=== PATIENT | female | born 1930 | race Caucasian/White ===

== ENCOUNTER 2019-10-03 22:11 | Inpatient (IN) ==
[2019-10-03 22:39] LABS: Hematocrit 37.5 % (37.0-47.0); Hemoglobin 11.6 gm/dL (12.5-16.0); Mean Cell Volume 92.8 fl (78-100); Mean Corpuscular Hemoglobin 28.7 pg (27-31); Mean Corpuscular Hgb Conc 30.9 g/dl (32-36); Mean Platelet Volume 8.8 fl (8-12.5); Neutrophil # 12.7 K/mm3 (1.3-6.0); Platelet Count 341 K/mm3 (150-450); Red Blood Count 4.04 M/mm3 (4.2-5.4); White Blood Count 14.6 K/mm3 (4.0-10.5)
[2019-10-03 22:51] LABS: Prothrombin Time (Patient) 10.2 Seconds (9.1-10.7)
[2019-10-03 22:52] LABS: INR 1.03 INR (0.92-1.08); Partial Thrombolplastin Time 26.4 Seconds (24-32)
--- NOTE | 2019-10-03 22:52 | ERNOTE ---
Neuro HPI ER Record Presenting Symptoms: weakness, facial droop, confusion Time Seen by Provider: 10/03/19 22:22 Source: EMS, past records Exam Limitations: clinical condition Allergies/Adverse Reactions: Allergies Allergy/AdvReac Type Severity Reaction Status Date / Time Penicillins Allergy Intermediate Hives Verified 10/03/19 22:22 Home Medications: HOME MEDICATIONS Calcium Carbonate/Vitamin D3 [Calcium 600 + Vit D 200 Tablet] 1 ea PO DAILY 02/20/13 [Last Taken 02/10/18] aspirin 325 mg tablet 325 mg PO DAILY 12/18/17 [Last Taken 02/10/18] bisacodyl 5 mg tablet 5 mg PO DAILY 12/18/17 [Last Taken 02/10/18] cyanocobalamin (vitamin B-12) 1,000 mcg tablet 1,000 mcg PO DAILY #90 tab 10/15/18 [Last Taken Unknown] torsemide 20 mg tablet See Rx Instructions .ROUTE .COMPLEX #90 tablet 10/15/18 [Last Taken Unknown] acetaminophen 325 mg tablet 650 mg PO QID PRN tab 03/19/19 [Last Taken Unknown] cyclobenzaprine 5 mg tablet 5 mg PO BID PRN #10 tab 03/19/19 [Last Taken Unknown] gabapentin 300 mg capsule 300 mg PO BID #60 cap 03/19/19 [Last Taken Unknown] enalapril maleate 20 mg tablet 20 mg PO BID #180 tab 06/03/19 [Last Taken Unknown] potassium chloride 10 mEq capsule,extended release 20 meq PO DAILY #180 cap 07/15/19 [Last Taken Unknown] metoprolol succinate 100 mg tablet,extended release 24 hr See Rx Instructions .ROUTE .COMPLEX #180 unknown measurement unit code: tablet 09/22/19 [Last Taken Unknown] - History of Present Illness Narrative: Patient is an 89-year-old white female with past medical history significant for lung cancer, left carotid artery stenosis, hypertension and COPD was last seen at 1600 today and appearing well - her baseline self, which is independent and ambulatory. Neighbors tried to contact her after that were unable to get in touch with her they found patient on her floor unable to move her right side and having some troubles with speech. She was brought in via EMS with noted elevated blood pressures. Patient is unable to give much history due to clinical condition. EMS states that her blood sugars were over 200, systolic blood pressure over 200 and diastolic blood pressure in the 100s. They noted right facial droop and right sided paralysis. Given patient was last seen at 1600 hrs. she would be outside the timeframe for TPA. Patient does express pain when palpated along the left side but no gross deformi ty seen. Onset: sudden onset, cannot confirm onset, continues in ER, >3 hours - Character of Deficits New weakness: Present: RUE, RLE, facial (rt) Altered sensation: Present: RUE, RLE, facial (rt) Additional Deficits: Present: decrease ability to stand, decrease ability to walk, cannot walk, cannot stand, bed-ridden. Absent: vision problems, impaired speech Baseline Cognition: Present: alert but confused Baseline Gait: Present: walks w/o assistance Associated Symptoms: Reports: agitated. Denies: fever/chills, chest pain, neck/back pain, headache, altered mental status, disoriented, confused Review of Systems - Review of Systems Constitutional: Absent: fever, chills EYE: Present: blurred vision, double vision ENT: Present: no symptoms reported Respiratory: Absent: shortness of breath, cough Cardiology: Absent: chest pain, palpitations Gastrointestinal/Abdominal: Absent: nausea, vomiting, abdominal pain Genitourinary: Absent: dysuria Musculoskeletal: Present: See HPI Skin: Absent: rash, dryness Neurological: Present: See HPI Endocrine: Absent: intolerance to heat, intolerance to cold, increased thirst, increased urine Hematologic/Lymphatic: Absent: easy bruising, easy bleeding Psych: Absent: anxiety, depressed Medical History (Last Reviewed 10/03/19 @ 22:23 by Jose Soto MD) Anemia of chronic disease Onset Date: ~07/14/09 COPD (chronic obstructive pulmonary disease) Onset Date: Unknown Carotid stenosis Onset Date: ~2013 Chronic renal insufficiency Onset Date: Unknown Goiter Onset Date: Unknown Hypertension Onset Date: Unknown Overactive bladder Onset Date: Unknown Seasonal allergies Onset Date: Unknown Abnormal carotid duplex scan Onset Date: ~11/11/13 Hemodynamically significant greater than 60% stenosis within the left carotid system Lung cancer Onset Date: ~01/2008 Left upper lobe mass; carcinoma/adenocarcinoma with bronchioalveloar features Surgical History: Surgical History (Last Reviewed 10/03/19 @ 22:23 by Jose Soto MD) History of phacoemulsification of cataract of left eye with intraocular lens implantation H/O colonoscopy Onset Date: Unknown Family History: Family History (Last Reviewed 10/03/19 @ 22:23 by Jose Soto MD) Father , age 70 History of stroke Mother , age 52; unknown history Social History: (Last Reviewed 10/03/19 @ 22:23 by Jose Soto MD) Social History: adopted: No care home: No Marital status: / lives independently: No current occupational status: retired Service: No Tobacco: Smoking Status: Former smoker Alcohol: alcohol intake: current Substance Use: substance use type: does not use Dietary Habits: caffeine: Yes Type: coffee Physical Exam - Physical Exam General Appearance: Present: wd/wn, alert, mild distress Head Exam: Present: normal inspection, no evidence of injury Eye Exam: Normal inspection: bilateral, PERRL: bilateral, EOMI: bilateral Ears, Nose, Throat: Present: normal except -, dry mucous membranes, other - Notable right facial droop Neck: Present: normal inspection, nontender, supple, carotid bruit - left Respiratory: Present: no respiratory distress, normal breath sounds, no accessory muscle use, lungs clear, chest tenderness - Tender to palpation over the left lateral ribs. Cardiovascular/Chest: Present: regular rate, rhythm, systolic murmur - 4/6 heard best at the left upper sternal border Peripheral Pulses: N=norm/S=strong/W=weak/B=bound/A=absent: Dorsalis-pedis (R): Normal, Dorsalis-pedis (L): Normal Gastrointestinal/Abdominal: Present: normal bowel sounds, nontender, nondistended, soft, no organomegaly Back Exam: Present: no vertebral tenderness, other - deformity of the R scapula - winged vs displaced. Extremity Exam: Present: normal except -, extremity edema - 1+ bilaterally, other - Cool extremities especially on the right side. Right toes and fingers are more purple than the left side. Patient has no purposeful movement of the right side. She has bruising in the triceps area on R and should appears higher riding. Neurological Exam: Present: alert, merchandiser retail representative II-XII nml as tested - Cranial nerves II through VII tested, IX. pt. uncooperative or unable to do other tests., facial droop, motor weakness - Right upper and lower extremity, other - Patient has a very weak gag reflex. She is uncooperative and doing a tongue protrusion and side to side.. Absent: normal cerebellar test - unable to assess due to pt. unable to cooperate. Skin Exam: Present: other - Violaceous color of fingers and toes on right side. [place] Coma Scale - Assess Eye Opening: Spontaneous Motor: Obeys Commands Verbal: Confused - Total Coma Scale Total: 14 Initial Stroke Assessment - Date/Time of assessment Stroke Scale Date: 10/03/19 Stroke Scale Time: 16:00 - NIH Stroke Scale Level of Consciousness: Alert LOC Questions (Year and Age): Answers neither correctly LOC Commands (open/close eyes/fist): Performs one correctly Lateral Gaze Paresis: None Visual Field Loss: No visual loss Facial Palsy: Complete facial paralysis Right Arm Motor (10 sec hold): No movement Left Arm Motor (10 sec hold): No drift Right Leg Motor (5 sec hold): No movement Left Leg Motor (5 sec hold): No drift Limb Ataxia (finger/nose heel/rushing): Untestable Sensory Loss (pinprick arms/legs/face): Severe to total loss Language Aphasia (description/naming/reading): Mild, yet understandable Dysarthria (speech clarity): Normal articulation Neglect Inattention (visual/tactile/auditory/spatial/person): Partial neglect Initial Stroke Scale Score:: 18 Progress - Results and Orders Patient's Lab Results:: I have reviewed the patient's lab results. Results and Orders: Patient has elevated white count of 14,000 with left shift. Given concern for possible aspiration pneumonia this would be consistent with an infection. Could still be a stress reaction. Laboratory Tests 10/03/19 22:34 WBC 14.6 H RBC 4.04 L Hgb 11.6 L Hct 37.5 MCV 92.8 MCH 28.7 MCHC 30.9 L RDW 15.0 H Plt Count 341 MPV 8.8 Immature Gran % (Auto) 0.50 H Immature Gran # (Auto) 0.07 H Neutrophils % 87.0 H Lymphocytes % 6.9 L Monocytes % 5.0 Eosinophils % 0.3 Basophils % 0.3 Nucleated RBC % 0.0 Neutrophils # 12.7 H Lymphocytes # 1.00 L Monocytes # 0.7 Eosinophils # 0.0 Absolute Basophils 0.0 Laboratory Tests 10/03/19 22:55 Urine Color Yellow Urine Appearance Slightly cloudy Urine pH 7.0 Ur Specific [place] 1.015 Urine Protein 15 H Urine Glucose (UA) Negative Urine Ketones Negative Urine Blood 5 H Urine Nitrate Negative Urine Bilirubin Negative Prot Sulfosalicylic Acd Negative Urine Urobilinogen Normal Ur Leukocyte Esterase Negative Urine RBC 0-5 Urine WBC 0-5 Ur Epithelial Cells 0-5 Urine Bacteria 1+ H Urine Culture Comments Culture to follow Laboratory Tests 10/03/19 22:34 PT 10.2 INR (Anticoag Therapy) 1.03 PTT (Reji) 26.4 Laboratory Tests 10/03/19 22:34 Sodium 145 H Plasma Sodium 146 H Potassium 3.8 Chloride 107 H Carbon Dioxide 25.2 Anion Gap 16.6 H BUN 39 H Creatinine 1.90 H Est GFR (Non-Af Amer) 26 L D BUN/Creatinine Ratio 20.5 Random Glucose 135 H Calcium 9.1 Calcium Adj for Albumin 9.2 Total Bilirubin 0.4 AST 14 ALT 6 L Troponin I 0.032 Total Protein 8.1 Albumin 3.5 - Vital Signs Patient's Vital Signs:: I have reviewed the patient's vital signs. Vital Signs: Vital Signs 10/03/19 22:19 Temperature 36.6 C Pulse Rate 81 Respiratory Rate 21 H Blood Pressure 180/122 H O2 Sat by Pulse Oximetry 89 L - EKG EKG #1 EKG: NSR, no ST T wave changes EKG read: Interp. by me EKG Comments: no acute changes of concern - X-Ray X-Ray #1 X-Ray: chest Interpretation: Interp. by me X-ray Comments: Concern for right middle lobe pneumonia. Given history would be concerning for aspiration pneumonia otherwise no acute changes seen. There is some concern for the R shoulder being dislocated. X-Ray #2 X-Ray: shoulder Interpretation: Interp. by me X-ray Comments: mal-position of the shoulder, concern for dislocation. Will contact ortho. Ankur Bishop stated alignment looked ok from PA film, will get axillary view to determine if displaced anterior or posterior. Alignment looks ok on axillary view. No fracture seen. will do sling for comfort due to bruising and patient complaint of pain. X-Ray #3 X-Ray: humerus Interpretation: Interp. by me X-ray Comments: possible impacted humeral head. Other views showed no fractures. Will sling just for comfort. X-Ray #4 X-Ray: ankle Interpretation: Interp. by me X-ray Comments: no dislocation or fracture seen. X-Ray #5 X-Ray: hip Interpretation: Interp. by me X-ray Comments: No acute fractures or displacement seen pelvis or femoral necks bilaterally. - CT/Ultrasound CT/Ultrasound Narrative: CT shows no evidence for acute intracranial bleed, mass or infarction. - Progress/Reassessment Chief Complaint: CerebroVascular Accident Progress:: Unchanged Progress Note-Subjective: 10/03/19 23:09 Blood pressures are continued to be labile. Current blood pressure 209/104 so we will give her 20 mg of IV labetalol. We do wish her to have some permissive hypertension but will shoot for somewhere around 150-160. - Transfer of Care Expected Disposition: Admit Additional Notes: Case discussed with Dr. Peguero who is agreeable to accept patient for inpatient status. 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 Will do IV enalapril as needed to keep her blood pressures in 150-160 range. Continue IV clindamycin for aspiration pneumonia. Patient will need swallow studies and probable placement for rehab versus long-term care. Discussed shoulder with Ankur Bishop, feel that shoulder is most likely just a sprain and he will follow outpatient as needed. Will do a sling for comfort. No dislocation or fracture seen at this time. Plan - Plan Plan: Given patient is outside the 3-hour window for TPA will assess for possible intracranial bleed or intracranial pressures that may need to be reduced. Do head CT to evaluate for this. Blood pressures are currently 180 systolic with a diastolic 122. Consider IV lipid panel on when she gets back from CT. Do cardiac work-up be sure there is no other underlying issues going on. There is some concern with with her history of lung cancer that she could have a tumor causing symptoms. Head CT shows no acute bleed, masses or old infarcts. Patient initially was 89% on room air was placed on 2 L O2 which brought her 100%. We will take her off the O2 to see if her sats remain in the low 90s so we do not get reperfusion injury or issues from hyperventilating her. Given patient complaint of pain with movement and her bruising and PE findings, will get xrays of her R shoulder and humerous, R hip and L ankle. Departure Clinical Impression: THIERNO (acute kidney injury) CVA (cerebral vascular accident) Qualifiers: CVA mechanism: embolism Precerebral and cerebral artery: middle cerebral artery Laterality of affected vessel: left Qualified Code(s): I63.412 - Cerebral infarction due to embolism of left middle cerebral artery Hypertension Qualifiers: Hypertension type: essential hypertension Qualified Code(s): I10 - Essential (primary) hypertension Aspiration pneumonia Qualifiers: Aspiration pneumonia type: unspecified Laterality: right Lung location: middle lobe of lung Qualified Code(s): J69.0 - Pneumonitis due to inhalation of food and vomit Strain of right shoulder Qualifiers: Encounter type: initial encounter Qualified Code(s): S46.911A - Strain of unspecified muscle, fascia and tendon at shoulder and upper arm level, right arm, initial encounter - Departure Disposition: Still a patient Condition: Fair
[2019-10-03] MEDS ORDERED: CLINDAMYCIN PHOSPHATE 600 MG in DEXTROSE 5 % IN WATER 100 ML IV ONE ×2 (22:58)
[2019-10-03 23:01] LABS: Albumin * 3.5 gm/dl (3.4-5.0); Anion Gap 16.6 mmol/L (6.8-13.8); BUN/Creatinine Ratio 20.5 (9.0-21.6); Bilirubin, Total 0.4 mg/dL (0.0-1.1); Ca. Corrected For Albumin 9.2 mg/dL (8.4-10.2); Calcium * 9.1 mg/dL (7.9-10.9); Carbon Dioxide 25.2 mmol/L (24-32.6); Potassium 3.8 mmol/L (3.4-4.6); Total Protein 8.1 gm/dL (6.2-8.2); Troponin I 0.032 ng/mL (0.00-0.10)
[2019-10-03 23:02] LABS: Urine Bilirubin Negative (NEGATIVE); Urine Ketone Negative (NEGATIVE); Urine Nitrite Negative (NEGATIVE); Urine Protein 15 mg/dL (NEGATIVE); Urine Specific Gravity 1.015 SP.GR. (1.005-1.010); Urine Urobilinogen Normal (NORMAL)
[2019-10-03] MEDS ORDERED: LABETALOL HCL 5 MG/ML VIAL IV ONE (23:07)
[2019-10-03 23:10] LABS: Urine Appearance Slightly Cloudy (CLEAR); Urine Blood 5 /ul (NEGATIVE); Urine Color Yellow
[2019-10-03 23:11] LABS: Urine Bacteria 1+; Urine RBC 0-5 /hpf (0-5); Urine WBC 0-5 /hpf (0-5)
[2019-10-03] MEDS ORDERED: ENALAPRILAT DIHYDRATE 2.5 MG/2 ML VIAL IV PRN (23:30)
[2019-10-04] MEDS: RINGER'S SOLUTION,LACTATED 1,000 ML IV PRN ×3 (00:14→16:15)
[2019-10-04] MEDS: HEPARIN SODIUM,PORCINE 5,000 UNITS/ML VIAL SC SCH ×4 (00:30→23:56)
[2019-10-04] MEDS ORDERED: ACETAMINOPHEN 1,000 MG/100 ML BTL IV PRN (00:38)
[2019-10-04] MEDS: CLOPIDOGREL BISULFATE 75 MG TABLET PO SCH ×2 (03:56→08:05)
[2019-10-04] MEDS: ROSUVASTATIN CALCIUM 20 MG TABLET PO SCH ×2 (03:56→08:05)
[2019-10-04] MEDS: CLINDAMYCIN PHOSPHATE 600 MG in DEXTROSE 5 % IN WATER 100 ML IV SCH ×4 (04:27→10:43)
[2019-10-04] MEDS: METOPROLOL SUCCINATE 100 MG TABLET.SA PO SCH ×2 (13:03→20:24)
[2019-10-04] MEDS: ENALAPRIL MALEATE 20 MG TABLET PO SCH ×2 (13:03→20:26)
[2019-10-04] MEDS: BISACODYL 5 MG TABLET.DR PO SCH (13:04)
[2019-10-04] MEDS: ENALAPRILAT DIHYDRATE 1.25 MG/ML VIAL IV PRN ×2 (17:25→23:25)
--- NOTE | 2019-10-04 23:14 | HP ---
Chief Complaint - Chief Complaint Date of Service: 10/04/19 Time of Service: 01:45 Chief Complaint: Right sided weakness History of Present Illness: Mariah is an 89 yo female that presents to [facility] ER with right sided weakness, confusion, and decreased speech. History is difficulty due to patient condition. Patient was out of the window for acute stroke treatment in the ER. Head CT was negative for bleed. Medical History (Last Reviewed 10/03/19 @ 22:23 by Jose Soto MD) Anemia of chronic disease Onset Date: ~07/14/09 COPD (chronic obstructive pulmonary disease) Onset Date: Unknown Carotid stenosis Onset Date: ~2013 Chronic renal insufficiency Onset Date: Unknown Goiter Onset Date: Unknown Hypertension Onset Date: Unknown Overactive bladder Onset Date: Unknown Seasonal allergies Onset Date: Unknown Abnormal carotid duplex scan Onset Date: ~11/11/13 Hemodynamically significant greater than 60% stenosis within the left carotid system Lung cancer Onset Date: ~01/2008 Left upper lobe mass; carcinoma/adenocarcinoma with bronchioalveloar features Surgical History: Surgical History (Last Reviewed 10/03/19 @ 22:23 by Jose Soto MD) History of phacoemulsification of cataract of left eye with intraocular lens implantation H/O colonoscopy Onset Date: Unknown Family History: Family History (Last Reviewed 10/03/19 @ 22:23 by Jose Soto MD) Father , age 70 History of stroke Mother , age 52; unknown history Social History: (Last Reviewed 10/03/19 @ 22:23 by Jose Soto MD) Social History: adopted: No alf: No Marital status: / lives independently: No current occupational status: retired Service: No Tobacco: Smoking Status: Former smoker Alcohol: alcohol intake: current Substance Use: substance use type: does not use Dietary Habits: caffeine: Yes Type: coffee Review Of Systems (GEN) - Review of Systems Additional Comments: Unable to do ROS due to patient condition Allergies/Adverse Reactions: Allergies Allergy/AdvReac Type Severity Reaction Status Date / Time Penicillins Allergy Intermediate Hives Verified 10/03/19 22:22 Home Medications: HOME MEDICATIONS Calcium Carbonate/Vitamin D3 [Calcium 600 + Vit D 200 Tablet] 1 ea PO DAILY 02/20/13 [Last Taken 02/10/18] aspirin 325 mg tablet 325 mg PO DAILY 12/18/17 [Last Taken 02/10/18] bisacodyl 5 mg tablet 5 mg PO DAILY 12/18/17 [Last Taken 02/10/18] cyanocobalamin (vitamin B-12) 1,000 mcg tablet 1,000 mcg PO DAILY #90 tab 10/15/18 [Last Taken Unknown] acetaminophen 325 mg tablet 650 mg PO QID PRN tab 03/19/19 [Last Taken Unknown] enalapril maleate 20 mg tablet 20 mg PO BID #180 tab 06/03/19 [Last Taken Unknown] Metoprolol Succinate 100 mg PO BID 10/04/19 [Last Taken Unknown] Torsemide [Demadex] 20 mg PO DAILY 10/04/19 [Last Taken Unknown] potassium chloride 10 mEq capsule,extended release 20 meq PO DAILY 10/04/19 [Last Taken Unknown] Exam - Exam Vital Signs: Vital Signs - Last Taken Temp 36.3 C 10/04/19 18:22 Pulse 80 10/04/19 20:26 Resp 24 H 10/04/19 18:22 BP 152/78 H 10/04/19 20:26 Pulse Ox 93 10/04/19 18:22 Constitutional: Present: Alert, No distress. Absent: Oriented x3 ENT Exam: Present: hearing grossly normal Respiratory: Present: lungs clear, normal breath sounds, no respiratory distress Cardiovascular/Chest: Present: regular rate, rhythm, no murmur Peripheral Pulses: radial (R): 2+, radial (L): 2+ Abdomen: Present: Normal bowel sounds, soft, nontender, nondistended, no rebound tenderness Skin Exam: Present: normal color, warm/dry, no cyanosis Neurologic: Present: motor weakness - patient does not follow commands, disoriented x 3, other - limits right sided movement Diagnostic Studies: Abnormal Lab Results 10/03/19 10/03/19 10/03/19 Range/Units 22:34 22:34 22:55 ESR 48 H (0-15) mm/hr Sodium 145 H (132-142) mmol/L Plasma Sodium 146 H (130-142) mmol/L Chloride 107 H (97-106) mmol/L Anion Gap 16.6 H (6.8-13.8) mmol/L BUN 39 H (3-23) mg/dL Creatinine 1.90 H (0.4-1.4) mg/dL Est GFR (Non-Af Amer) 26 L D (60-130) mL/min Random Glucose 135 H (70-110) mg/dL ALT 6 L (19-67) U/L Urine Protein 15 H (NEGATIVE) mg/dL Urine Blood 5 H (NEGATIVE) /ul Urine Bacteria 1+ H (NONE) Laboratory Results WBC 14.6 K/mm3 (4.0-10.5) H 10/03/19 22:34 RBC 4.04 M/mm3 (4.2-5.4) L 10/03/19 22:34 Hgb 11.6 gm/dL (12.5-16.0) L 10/03/19 22:34 Hct 37.5 % (37.0-47.0) 10/03/19 22:34 MCV 92.8 fl (78-100) 10/03/19 22:34 MCH 28.7 pg (27-31) 10/03/19 22:34 MCHC 30.9 g/dl (32-36) L 10/03/19 22:34 RDW 15.0 % (11.5-14.0) H 10/03/19 22:34 Plt Count 341 K/mm3 (150-450) 10/03/19 22:34 MPV 8.8 fl (8-12.5) 10/03/19 22:34 Immature Gran % (Auto) 0.50 % (0.001-0.429) H 10/03/19 22:34 Immature Gran # (Auto) 0.07 K/mm3 (0.000-0.0310) H 10/03/19 22:34 Neutrophils % 87.0 % (42-75.0) H 10/03/19 22:34 Lymphocytes % 6.9 % (20-51) L 10/03/19 22:34 Monocytes % 5.0 % (0.0-9) 10/03/19 22:34 Eosinophils % 0.3 % (0.0-3.0) 10/03/19 22:34 Basophils % 0.3 % (0.0-1.0) 10/03/19 22:34 Nucleated RBC % 0.0 k/mm3 (0-1) 10/03/19 22:34 Neutrophils # 12.7 K/mm3 (1.3-6.0) H 10/03/19 22:34 Lymphocytes # 1.00 k/mm3 (1.5-3.5) L 10/03/19 22:34 Monocytes # 0.7 k/mm3 (0.0-1.0) 10/03/19 22:34 Eosinophils # 0.0 k/mm3 (0.0-0.7) 10/03/19 22:34 Absolute Basophils 0.0 k/mm3 (0.0-0.1) 10/03/19 22:34 ESR 48 mm/hr (0-15) H 10/03/19 22:34 PT 10.2 Seconds (9.1-10.7) 10/03/19 22:34 INR (Anticoag Therapy) 1.03 INR (0.92-1.08) 10/03/19 22:34 PTT (Reji) 26.4 Seconds (24-32) 10/03/19 22:34 Sodium 145 mmol/L (132-142) H 10/03/19 22:34 Plasma Sodium 146 mmol/L (130-142) H 10/03/19 22:34 Potassium 3.8 mmol/L (3.4-4.6) 10/03/19 22:34 Chloride 107 mmol/L (97-106) H 10/03/19 22:34 Carbon Dioxide 25.2 mmol/L (24-32.6) 10/03/19 22:34 Anion Gap 16.6 mmol/L (6.8-13.8) H 10/03/19 22:34 BUN 39 mg/dL (3-23) H 10/03/19 22:34 Creatinine 1.90 mg/dL (0.4-1.4) H 10/03/19 22:34 Est GFR (Non-Af Amer) 26 mL/min (60-130) L D 10/03/19 22:34 BUN/Creatinine Ratio 20.5 (9.0-21.6) 10/03/19 22:34 Random Glucose 135 mg/dL (70-110) H 10/03/19 22:34 Calcium 9.1 mg/dL (7.9-10.9) 10/03/19 22:34 Calcium Adj for Albumin 9.2 mg/dL (8.4-10.2) 10/03/19 22:34 Total Bilirubin 0.4 mg/dL (0.0-1.1) 10/03/19 22:34 AST 14 U/L (0-48) 10/03/19 22:34 ALT 6 U/L (19-67) L 10/03/19 22:34 Alkaline Phosphatase 141 U/L (50-170) 10/03/19 22:34 Creatine Kinase 53 U/L (0-259) 10/03/19 22:34 Troponin I 0.032 ng/mL (0.00-0.10) 10/03/19 22:34 Total Protein 8.1 gm/dL (6.2-8.2) 10/03/19 22:34 Albumin 3.5 gm/dl (3.4-5.0) 10/03/19 22:34 Urine Color Yellow 10/03/19 22:55 Urine Appearance Slightly cloudy (CLEAR) 10/03/19 22:55 Urine pH 7.0 pH (5.0-7.0) 10/03/19 22:55 Ur Specific [place] 1.015 SP.GR. (1.005-1.010) 10/03/19 22:55 Urine Protein 15 mg/dL (NEGATIVE) H 10/03/19 22:55 Urine Glucose (UA) Negative mg/dL (NEGATIVE) 10/03/19 22:55 Urine Ketones Negative mg/dL (NEGATIVE) 10/03/19 22:55 Urine Blood 5 /ul (NEGATIVE) H 10/03/19 22:55 Urine Nitrate Negative (NEGATIVE) 10/03/19 22:55 Urine Bilirubin Negative mg/dl (NEGATIVE) 10/03/19 22:55 Prot Sulfosalicylic Acd Negative mg/dL (0) 10/03/19 22:55 Urine Urobilinogen Normal EU/dl (NORMAL) 10/03/19 22:55 Ur Leukocyte Esterase Negative /ul (NEGATIVE) 10/03/19 22:55 Urine RBC 0-5 /hpf (0-5) 10/03/19 22:55 Urine WBC 0-5 /hpf (0-5) 10/03/19 22:55 Ur Epithelial Cells 0-5 /hpf (0-5) 10/03/19 22:55 Urine Bacteria 1+ (NONE) H 10/03/19 22:55 Urine Culture Comments Culture to follow 10/03/19 22:55 Assessment/Plan - Narrative Narrative: Mariah is an 89 yo female with acute stroke based on clinicall findings with hypertensive emergency. Blood pressure is significantly elevated but dropping blood pressure in the acute phase will couase more change of worsening stroke. Will lower blood pressure below 180 systolic and below 120 diastolic but will not push blood pressure further at this time. Will gradually lower over time. Will plan to get Brain MRI on sunday when able. Will consult PT, OT, and ST. - Assessment/Plan (1) CVA (cerebral vascular accident) Problem: Acute Qualifiers: CVA mechanism: unspecified Qualified Code(s): I63.9 - Cerebral infarction, unspecified (2) Hypertensive emergency Problem: Acute
[2019-10-05] MEDS: ENALAPRILAT DIHYDRATE 1.25 MG/ML VIAL IV PRN (03:35)
[2019-10-05] MEDS: CALCIUM CARBONATE/VITAMIN D3 1 TAB TABLET PO SCH (09:42)
[2019-10-05] MEDS: ROSUVASTATIN CALCIUM 20 MG TABLET PO SCH (09:42)
[2019-10-05] MEDS: CLOPIDOGREL BISULFATE 75 MG TABLET PO SCH (09:42)
[2019-10-05] MEDS: METOPROLOL SUCCINATE 100 MG TABLET.SA PO SCH ×2 (09:42→20:33)
[2019-10-05] MEDS: ENALAPRIL MALEATE 20 MG TABLET PO SCH ×2 (09:42→20:34)
[2019-10-05] MEDS: TORSEMIDE 20 MG TABLET PO SCH (09:42)
[2019-10-05] MEDS: CYANOCOBALAMIN 1,000 MCG TABLET PO SCH (09:42)
[2019-10-05] MEDS: HEPARIN SODIUM,PORCINE 5,000 UNITS/ML VIAL SC SCH (09:43)
[2019-10-05] MEDS: BISACODYL 5 MG TABLET.DR PO SCH (09:43)
[2019-10-05 13:29] LABS: Hematocrit 38.2 % (37.0-47.0); Hemoglobin 11.8 gm/dL (12.5-16.0); Mean Cell Volume 93.4 fl (78-100); Mean Corpuscular Hemoglobin 28.9 pg (27-31); Mean Corpuscular Hgb Conc 30.9 g/dl (32-36); Mean Platelet Volume 9.1 fl (8-12.5); Neutrophil # 6.5 K/mm3 (1.3-6.0); Neutrophil % 72.6 % (42-75.0); Platelet Count 365 K/mm3 (150-450); Red Blood Count 4.09 M/mm3 (4.2-5.4); Red Cell Distribution Width 15.4 % (11.5-14.0); White Blood Count 8.9 K/mm3 (4.0-10.5)
[2019-10-05 14:15] LABS: Albumin * 3.5 gm/dl (3.4-5.0); BUN/Creatinine Ratio 12.4 (9.0-21.6); Bilirubin, Total 0.6 mg/dL (0.0-1.1); Ca. Corrected For Albumin 9.4 mg/dL (8.4-10.2); Calcium * 9.3 mg/dL (7.9-10.9); Carbon Dioxide 22.6 mmol/L (24-32.6); Potassium 3.6 mmol/L (3.4-4.6); Total Protein 8.3 gm/dL (6.2-8.2)
--- NOTE | 2019-10-05 16:48 | PN ---
Subjective - Date and Time Seen Date: 10/05/19 Time: 11:45 Subjective Narrative: Mariah has no concerns. She is more conversant but still having difficulty findings the words to say. She has ambulated and worked with PT. She is moving all extremities but is still a little weak. No fever, chills, nausea, vomiting. She did ok with food. Objective - Vitals Vitals: Last Vital Signs Temp 36.8 C 10/05/19 14:38 Pulse 73 10/05/19 14:38 Resp 18 10/05/19 14:38 BP 156/102 H 10/05/19 14:38 Pulse Ox 94 10/05/19 14:38 - Abnormal Lab Findings Abnormal Lab Findings: Abnormal Lab Results 10/05/19 10/05/19 Range/Units 12:47 12:47 RBC 4.09 L (4.2-5.4) M/mm3 Hgb 11.8 L (12.5-16.0) gm/dL MCHC 30.9 L (32-36) g/dl RDW 15.4 H (11.5-14.0) % Immature Gran % (Auto) 0.60 H (0.001-0.429) % Immature Gran # (Auto) 0.05 H (0.000-0.0310) K/mm3 Lymphocytes % 17.3 L (20-51) % Neutrophils # 6.5 H (1.3-6.0) K/mm3 Carbon Dioxide 22.6 L (24-32.6) mmol/L Anion Gap 15.0 H (6.8-13.8) mmol/L Creatinine 1.45 H D (0.4-1.4) mg/dL Est GFR (Non-Af Amer) 36 L D (60-130) mL/min ALT 10 L (19-67) U/L Total Protein 8.3 H (6.2-8.2) gm/dL - Exam Constitutional: Present: Alert, Cooperative ENT Exam: Present: hearing grossly normal Respiratory: Present: lungs clear, normal breath sounds Cardiovascular/Chest: Present: regular rate, rhythm, no murmur Abdomen: Present: Normal bowel sounds, soft, nontender, nondistended Skin Exam: Present: normal color, warm/dry, no cyanosis Assessment/Plan Plan Narrative: Will plan to get Brain MRI tomorrow and further studies to evaluate acute stroke and continue to work with therapies. She is making improvement. Will follow rec ommendations from speech. Blood pressure remains elevated but I am slowly lowering this from the extreme levels she arrived in to prevent worsening of stroke. Will continue current medications for now and follow pressures. - Problems/Diagnosis (1) CVA (cerebral vascular accident) Problem: Acute Qualifiers: CVA mechanism: unspecified Qualified Code(s): I63.9 - Cerebral infarction, unspecified (2) Hypertensive emergency Problem: Acute
[2019-10-06 06:35] LABS: Hemoglobin 10.6 gm/dL (12.5-16.0); Mean Cell Volume 91.9 fl (78-100); Mean Corpuscular Hemoglobin 28.6 pg (27-31); Mean Corpuscular Hgb Conc 31.2 g/dl (32-36); Mean Platelet Volume 9.1 fl (8-12.5); Neutrophil # 5.8 K/mm3 (1.3-6.0); Neutrophil % 65.6 % (42-75.0); Platelet Count 300 K/mm3 (150-450); Red Cell Distribution Width 15.4 % (11.5-14.0); White Blood Count 8.8 K/mm3 (4.0-10.5)
[2019-10-06 07:10] LABS: Albumin * 2.9 gm/dl (3.4-5.0); Anion Gap 11.8 mmol/L (6.8-13.8); BUN/Creatinine Ratio 11.3 (9.0-21.6); Bilirubin, Total 0.4 mg/dL (0.0-1.1); Calcium * 8.4 mg/dL (7.9-10.9); Carbon Dioxide 26.6 mmol/L (24-32.6); Potassium 3.4 mmol/L (3.4-4.6)
[2019-10-06] MEDS ORDERED: amLODIPine BESYLATE 5 MG TABLET PO SCH (09:00)
[2019-10-06] MEDS: METOPROLOL SUCCINATE 100 MG TABLET.SA PO SCH ×2 (09:50→20:41)
[2019-10-06] MEDS: CYANOCOBALAMIN 1,000 MCG TABLET PO SCH (09:50)
[2019-10-06] MEDS: ROSUVASTATIN CALCIUM 20 MG TABLET PO SCH (09:51)
[2019-10-06] MEDS: TORSEMIDE 20 MG TABLET PO SCH (09:51)
[2019-10-06] MEDS: CLOPIDOGREL BISULFATE 75 MG TABLET PO SCH (09:51)
[2019-10-06] MEDS: ENALAPRIL MALEATE 20 MG TABLET PO SCH ×2 (09:51→20:43)
[2019-10-06] MEDS: CALCIUM CARBONATE/VITAMIN D3 1 TAB TABLET PO SCH (09:51)
[2019-10-06] MEDS: BISACODYL 5 MG TABLET.DR PO SCH (09:51)
[2019-10-06] MEDS ORDERED: ONDANSETRON HCL/PF 2 MG/ML VIAL IV PRN (16:45)
--- NOTE | 2019-10-06 23:07 | PN ---
Subjective - Date and Time Seen Date: 10/06/19 Time: 08:15 Subjective Narrative: Mariah is up to the chair for breakfast. She has no conplaints but does not talk much today. No fever, chills. She is moving all extremities well. Objective - Vitals Vitals: Last Vital Signs Temp 36.7 C 10/06/19 20:38 Pulse 108 H 10/06/19 20:43 Resp 18 10/06/19 20:38 BP 171/78 H 10/06/19 20:43 Pulse Ox 96 10/06/19 20:38 - Abnormal Lab Findings Abnormal Lab Findings: Abnormal Lab Results 10/06/19 10/06/19 Range/Units 06:30 06:30 RBC 3.70 L (4.2-5.4) M/mm3 Hgb 10.6 L (12.5-16.0) gm/dL Hct 34.0 L (37.0-47.0) % MCHC 31.2 L (32-36) g/dl RDW 15.4 H (11.5-14.0) % Immature Gran % (Auto) 0.50 H (0.001-0.429) % Immature Gran # (Auto) 0.04 H (0.000-0.0310) K/mm3 Sodium 143 H (132-142) mmol/L Plasma Sodium 143 H (130-142) mmol/L Chloride 108 H (97-106) mmol/L Creatinine 1.42 H (0.4-1.4) mg/dL Est GFR (Non-Af Amer) 37 L (60-130) mL/min ALT 9 L (19-67) U/L Albumin 2.9 L (3.4-5.0) gm/dl - Exam Constitutional: Present: Alert. Absent: Oriented x3 Respiratory: Present: lungs clear, normal breath sounds, no respiratory distress Cardiovascular/Chest: Present: regular rate, rhythm Abdomen: Present: Normal bowel sounds, soft, nontender, nondistended Skin Exam: Present: normal color, warm/dry, no cyanosis Neurologic: Present: other - Does not converse today, appears pleasant Assessment/Plan Plan Narrative: Continue to work with therapies, unable to get brain MRI today as we are unable to clear her for MRI based on questions. I do not believe MRI will change the plan of care. Blood pressure remains elevated but in acceptable range for after acute stroke, this will be gradually lowered to normal. - Problems/Diagnosis (1) CVA (cerebral vascular accident) Problem: Acute Qualifiers: CVA mechanism: unspecified Qualified Code(s): I63.9 - Cerebral infarction, unspecified (2) Hypertensive emergency Problem: Acute
[2019-10-07 06:27] LABS: Hematocrit 36.7 % (37.0-47.0); Hemoglobin 11.4 gm/dL (12.5-16.0); Mean Cell Volume 92.4 fl (78-100); Mean Corpuscular Hemoglobin 28.7 pg (27-31); Mean Corpuscular Hgb Conc 31.1 g/dl (32-36); Mean Platelet Volume 8.7 fl (8-12.5); Neutrophil # 6.7 K/mm3 (1.3-6.0); Neutrophil % 71.7 % (42-75.0); Platelet Count 297 K/mm3 (150-450); Red Blood Count 3.97 M/mm3 (4.2-5.4); Red Cell Distribution Width 15.3 % (11.5-14.0); White Blood Count 9.3 K/mm3 (4.0-10.5)
[2019-10-07 06:43] LABS: Albumin * 3.1 gm/dl (3.4-5.0); Anion Gap 13.7 mmol/L (6.8-13.8); BUN/Creatinine Ratio 13.5 (9.0-21.6); Bilirubin, Total 0.5 mg/dL (0.0-1.1); Ca. Corrected For Albumin 9.2 mg/dL (8.4-10.2); Calcium * 8.8 mg/dL (7.9-10.9); Carbon Dioxide 26.4 mmol/L (24-32.6); Potassium 3.1 mmol/L (3.4-4.6); Total Protein 7.5 gm/dL (6.2-8.2)
[2019-10-07] MEDS ORDERED: POTASSIUM CHLORIDE 40 MEQ/15 ML LIQUID PO ONE (08:06)
[2019-10-07] MEDS ORDERED: POTASSIUM CHLORIDE 20 MEQ/15 ML UDC PO ONE (08:30)
[2019-10-07] MEDS: CALCIUM CARBONATE/VITAMIN D3 1 TAB TABLET PO SCH (08:51)
[2019-10-07] MEDS: TORSEMIDE 20 MG TABLET PO SCH (08:51)
[2019-10-07] MEDS: METOPROLOL SUCCINATE 100 MG TABLET.SA PO SCH ×2 (08:52→20:32)
[2019-10-07] MEDS: ROSUVASTATIN CALCIUM 20 MG TABLET PO SCH (08:52)
[2019-10-07] MEDS: CYANOCOBALAMIN 1,000 MCG TABLET PO SCH (08:52)
[2019-10-07] MEDS: CLOPIDOGREL BISULFATE 75 MG TABLET PO SCH (08:52)
[2019-10-07] MEDS: BISACODYL 5 MG TABLET.DR PO SCH (08:57)
[2019-10-07] MEDS: ENALAPRIL MALEATE 20 MG TABLET PO SCH ×2 (09:00→20:33)
[2019-10-07] MEDS ORDERED: amLODIPine BESYLATE 5 MG TABLET PO SCH (09:00)
--- NOTE | 2019-10-07 23:10 | PN ---
Subjective - Date and Time Seen Date: 10/07/19 Time: 16:15 Subjective Narrative: Mariah declined today. Right sided weakness is worse and she is having more difficulty with words. She is not swallowing food or medications well. Blood pressure in acceptable range. Objective - Vitals Vitals: Last Vital Signs Temp 36.9 C 10/07/19 21:38 Pulse 84 10/07/19 21:38 Resp 18 10/07/19 21:38 BP 158/86 H 10/07/19 21:38 Pulse Ox 96 10/07/19 21:38 - Abnormal Lab Findings Abnormal Lab Findings: Abnormal Lab Results 10/07/19 10/07/19 Range/Units 06:23 06:23 RBC 3.97 L (4.2-5.4) M/mm3 Hgb 11.4 L (12.5-16.0) gm/dL Hct 36.7 L (37.0-47.0) % MCHC 31.1 L (32-36) g/dl RDW 15.3 H (11.5-14.0) % Immature Gran # (Auto) 0.04 H (0.000-0.0310) K/mm3 Lymphocytes % 17.9 L (20-51) % Neutrophils # 6.7 H (1.3-6.0) K/mm3 Sodium 145 H (132-142) mmol/L Plasma Sodium 145 H (130-142) mmol/L Potassium 3.1 L (3.4-4.6) mmol/L Chloride 108 H (97-106) mmol/L Creatinine 1.48 H (0.4-1.4) mg/dL Est GFR (Non-Af Amer) 35 L (60-130) mL/min ALT 11 L (19-67) U/L Albumin 3.1 L (3.4-5.0) gm/dl - Exam Constitutional: Present: Alert. Absent: Oriented x3 Respiratory: Present: lungs clear, normal breath sounds, no respiratory distress Cardiovascular/Chest: Present: regular rate, rhythm Abdomen: Present: Normal bowel sounds, soft, nontender Neurologic: Present: other - Unable to move right upper extremity and reportedly drug right leg today. She spontaneously moves left extremities abut does not follow commands well. She does not converse with me today. Assessment/Plan Plan Narrative: Declined today. Unclear if this is just a bad day or a trend. Increased amlodipine to help further drop blood pressure. She was made DNR today by her next of kin. - Problems/Diagnosis (1) CVA (cerebral vascular accident) Problem: Acute Qualifiers: CVA mechanism: unspecified Qualified Code(s): I63.9 - Cerebral infarction, unspecified (2) Hypertensive emergency Problem: Acute
[2019-10-08 06:38] LABS: Hematocrit 36.1 % (37.0-47.0); Hemoglobin 11.3 gm/dL (12.5-16.0); Mean Cell Volume 92.1 fl (78-100); Mean Corpuscular Hemoglobin 28.8 pg (27-31); Mean Corpuscular Hgb Conc 31.3 g/dl (32-36); Mean Platelet Volume 9.1 fl (8-12.5); Neutrophil # 8.7 K/mm3 (1.3-6.0); Neutrophil % 76.7 % (42-75.0); Platelet Count 327 K/mm3 (150-450); Red Blood Count 3.92 M/mm3 (4.2-5.4); Red Cell Distribution Width 15.4 % (11.5-14.0); White Blood Count 11.4 K/mm3 (4.0-10.5)
[2019-10-08 06:51] LABS: Albumin * 3.1 gm/dl (3.4-5.0); BUN/Creatinine Ratio 16.4 (9.0-21.6); Bilirubin, Total 0.5 mg/dL (0.0-1.1); Ca. Corrected For Albumin 9.2 mg/dL (8.4-10.2); Calcium * 8.8 mg/dL (7.9-10.9); Carbon Dioxide 25.1 mmol/L (24-32.6); Potassium 3.1 mmol/L (3.4-4.6); Total Protein 7.6 gm/dL (6.2-8.2)
[2019-10-08] MEDS ORDERED: POTASSIUM CHLORIDE 20 MEQ TABLET.SA PO ONE (08:09)
[2019-10-08] MEDS: BISACODYL 5 MG TABLET.DR PO SCH (08:30)
[2019-10-08] MEDS: TORSEMIDE 20 MG TABLET PO SCH (08:30)
[2019-10-08] MEDS: CALCIUM CARBONATE/VITAMIN D3 1 TAB TABLET PO SCH (08:30)
[2019-10-08] MEDS: ROSUVASTATIN CALCIUM 20 MG TABLET PO SCH (08:30)
[2019-10-08] MEDS: CLOPIDOGREL BISULFATE 75 MG TABLET PO SCH (08:31)
[2019-10-08] MEDS: amLODIPine BESYLATE 10 MG TABLET PO SCH (08:31)
[2019-10-08] MEDS: METOPROLOL SUCCINATE 100 MG TABLET.SA PO SCH ×2 (08:31→20:34)
[2019-10-08] MEDS: CYANOCOBALAMIN 1,000 MCG TABLET PO SCH (08:31)
[2019-10-08] MEDS: ENALAPRIL MALEATE 20 MG TABLET PO SCH ×2 (08:37→20:34)
--- NOTE | 2019-10-08 23:32 | PN ---
Subjective - Date and Time Seen Date: 10/08/19 Time: 12:30 Subjective Narrative: Mariah is not moving her right side today and she does not converse. Ate little food today. Objective - Vitals Vitals: Last Vital Signs Temp 37.2 C 10/08/19 21:38 Pulse 91 10/08/19 21:38 Resp 22 H 10/08/19 21:38 BP 149/86 10/08/19 21:38 Pulse Ox 93 10/08/19 21:38 - Abnormal Lab Findings Abnormal Lab Findings: Abnormal Lab Results 10/08/19 10/08/19 Range/Units 06:00 06:30 WBC 11.4 H D (4.0-10.5) K/mm3 RBC 3.92 L (4.2-5.4) M/mm3 Hgb 11.3 L (12.5-16.0) gm/dL Hct 36.1 L (37.0-47.0) % MCHC 31.3 L (32-36) g/dl RDW 15.4 H (11.5-14.0) % Immature Gran % (Auto) 0.50 H (0.001-0.429) % Immature Gran # (Auto) 0.06 H (0.000-0.0310) K/mm3 Neutrophils % 76.7 H (42-75.0) % Lymphocytes % 13.2 L (20-51) % Neutrophils # 8.7 H (1.3-6.0) K/mm3 Sodium 147 H (132-142) mmol/L Plasma Sodium 147 H (130-142) mmol/L Potassium 3.1 L (3.4-4.6) mmol/L Chloride 109 H (97-106) mmol/L Anion Gap 16.0 H (6.8-13.8) mmol/L BUN 27 H (3-23) mg/dL Creatinine 1.65 H (0.4-1.4) mg/dL Est GFR (Non-Af Amer) 31 L (60-130) mL/min ALT 12 L (19-67) U/L Albumin 3.1 L (3.4-5.0) gm/dl - Exam Constitutional: Present: Alert. Absent: Oriented x3 Respiratory: Present: lungs clear, normal breath sounds, no respiratory distress Cardiovascular/Chest: Present: regular rate, rhythm, no edema Extremity: Present: other - right side is flaccid, left screw remover strength is weak at 3/5 Skin Exam: Present: normal color, warm/dry, no cyanosis Assessment/Plan Plan Narrative: Blood pressure is improved but condition is severely compromised. If she does not begin to improve would recommend hospice as she is not able to eat adequately or any other ADLs. - Problems/Diagnosis (1) CVA (cerebral vascular accident) Problem: Acute Qualifiers: CVA mechanism: unspecified Qualified Code(s): I63.9 - Cerebral infarction, unspecified (2) Hypertensive emergency Problem: Acute
[2019-10-09] MEDS: CALCIUM CARBONATE/VITAMIN D3 1 TAB TABLET PO SCH (08:34)
[2019-10-09] MEDS: amLODIPine BESYLATE 10 MG TABLET PO SCH (08:34)
[2019-10-09] MEDS: TORSEMIDE 20 MG TABLET PO SCH (08:34)
[2019-10-09] MEDS: ROSUVASTATIN CALCIUM 20 MG TABLET PO SCH (08:34)
[2019-10-09] MEDS: BISACODYL 5 MG TABLET.DR PO SCH (08:34)
[2019-10-09] MEDS: CYANOCOBALAMIN 1,000 MCG TABLET PO SCH (08:35)
[2019-10-09] MEDS: ENALAPRIL MALEATE 20 MG TABLET PO SCH ×2 (08:35→20:46)
[2019-10-09] MEDS: METOPROLOL SUCCINATE 100 MG TABLET.SA PO SCH ×2 (08:35→20:45)
[2019-10-09] MEDS: CLOPIDOGREL BISULFATE 75 MG TABLET PO SCH (08:35)
--- NOTE | 2019-10-09 23:18 | PN ---
Subjective - Date and Time Seen Date: 10/09/19 Time: 16:00 Subjective Narrative: No significant change today for Mariah. She is not eating well and not moving her right side. She does not converse well and only gets a word out occasionally. No fever, chills, nausea, or vomiting. Objective - Vitals Vitals: Last Vital Signs Temp 36.8 C 10/09/19 22:08 Pulse 89 10/09/19 22:08 Resp 16 10/09/19 22:08 BP 96/60 10/09/19 22:08 Pulse Ox 94 10/09/19 22:08 - Exam Constitutional: Present: Alert. Absent: Oriented x3 Respiratory: Present: lungs clear, normal breath sounds Cardiovascular/Chest: Present: regular rate, rhythm. Absent: edema Skin Exam: Present: normal color, warm/dry, no cyanosis Neurologic: Present: other - right side flacid, slight right facial droop Assessment/Plan Plan Narrative: Continue therapies although she is unable to participate. No improving in patient condition. 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 - Problems/Diagnosis (1) CVA (cerebral vascular accident) Problem: Acute Qualifiers: CVA mechanism: unspecified Qualified Code(s): I63.9 - Cerebral infarction, unspecified (2) Hypertensive emergency Problem: Acute
[2019-10-10 06:38] LABS: Mean Cell Volume 94.4 fl (78-100); Mean Corpuscular Hemoglobin 29.1 pg (27-31); Mean Corpuscular Hgb Conc 30.8 g/dl (32-36); Mean Platelet Volume 9.2 fl (8-12.5); Neutrophil # 10.8 K/mm3 (1.3-6.0); Neutrophil % 78.1 % (42-75.0); Platelet Count 356 K/mm3 (150-450); Red Blood Count 4.13 M/mm3 (4.2-5.4); Red Cell Distribution Width 15.7 % (11.5-14.0); White Blood Count 13.9 K/mm3 (4.0-10.5)
[2019-10-10 06:53] LABS: Albumin * 3.1 gm/dl (3.4-5.0); Anion Gap 15.3 mmol/L (6.8-13.8); BUN/Creatinine Ratio 23.7 (9.0-21.6); Bilirubin, Total 0.4 mg/dL (0.0-1.1); Ca. Corrected For Albumin 9.2 mg/dL (8.4-10.2); Calcium * 8.8 mg/dL (7.9-10.9); Carbon Dioxide 26.3 mmol/L (24-32.6); Potassium 3.6 mmol/L (3.4-4.6); Total Protein 7.9 gm/dL (6.2-8.2)
[2019-10-10] MEDS: ACETAMINOPHEN 325 MG TABLET PO PRN (07:17)
[2019-10-10] MEDS: TORSEMIDE 20 MG TABLET PO SCH (08:55)
[2019-10-10] MEDS: ROSUVASTATIN CALCIUM 20 MG TABLET PO SCH (08:55)
[2019-10-10] MEDS: CALCIUM CARBONATE/VITAMIN D3 1 TAB TABLET PO SCH (08:55)
[2019-10-10] MEDS: amLODIPine BESYLATE 10 MG TABLET PO SCH (08:56)
[2019-10-10] MEDS: BISACODYL 5 MG TABLET.DR PO SCH (08:56)
[2019-10-10] MEDS: CLOPIDOGREL BISULFATE 75 MG TABLET PO SCH (08:57)
[2019-10-10] MEDS: METOPROLOL SUCCINATE 100 MG TABLET.SA PO SCH ×2 (08:57→20:25)
[2019-10-10] MEDS: CYANOCOBALAMIN 1,000 MCG TABLET PO SCH (08:58)
[2019-10-10] MEDS: ENALAPRIL MALEATE 20 MG TABLET PO SCH ×2 (08:58→20:24)
[2019-10-10] MEDS ORDERED: BISACODYL 10 MG SUPP.RECT RC PRN (13:09)
[2019-10-10] MEDS ORDERED: guaiFENesin 100 MG/5 ML SYRUP PO PRN (13:09)
[2019-10-10] MEDS ORDERED: POLYVINYL ALCOHOL 150 DROP BTL EACHEYE PRN (13:09)
--- NOTE | 2019-10-10 23:35 | PN ---
Subjective - Date and Time Seen Date: 10/10/19 Time: 12:30 Subjective Narrative: No change in Mariah's condition. She has no complaints but does not communicate. Right side remains flaccid. Objective - Vitals Vitals: Last Vital Signs Temp 36.6 C 10/10/19 20:25 Pulse 83 10/10/19 20:25 Resp 16 10/10/19 20:25 BP 124/68 10/10/19 20:25 Pulse Ox 97 10/10/19 20:25 - Abnormal Lab Findings Abnormal Lab Findings: Abnormal Lab Results 10/10/19 10/10/19 Range/Units 06:30 06:30 WBC 13.9 H D (4.0-10.5) K/mm3 RBC 4.13 L (4.2-5.4) M/mm3 Hgb 12.0 L (12.5-16.0) gm/dL MCHC 30.8 L (32-36) g/dl RDW 15.7 H (11.5-14.0) % Immature Gran % (Auto) 0.50 H (0.001-0.429) % Immature Gran # (Auto) 0.07 H (0.000-0.0310) K/mm3 Neutrophils % 78.1 H (42-75.0) % Lymphocytes % 12.5 L (20-51) % Neutrophils # 10.8 H (1.3-6.0) K/mm3 Monocytes # 1.1 H (0.0-1.0) k/mm3 Sodium 151 H (132-142) mmol/L Plasma Sodium 151 H (130-142) mmol/L Chloride 113 H (97-106) mmol/L Anion Gap 15.3 H (6.8-13.8) mmol/L BUN 47 H D (3-23) mg/dL Creatinine 1.98 H (0.4-1.4) mg/dL Est GFR (Non-Af Amer) 25 L (60-130) mL/min BUN/Creatinine Ratio 23.7 H (9.0-21.6) Random Glucose 115 H (70-110) mg/dL ALT 11 L (19-67) U/L Albumin 3.1 L (3.4-5.0) gm/dl - Exam Constitutional: Present: Alert. Absent: Oriented x3 Respiratory: Present: lungs clear, normal breath sounds, no respiratory distress Cardiovascular/Chest: Present: regular rate, rhythm Neurologic: Present: other - Right side flacid, moves left extremity but does not follow commands Assessment/Plan Plan Narrative: Spoke with patient's nephew today who does not want to prolong her current condition. Based on little improvement this week I suspect her prognosis is poor. Will make Mariah comfort care and plan to discharge to hospice at care facility Sunday. - Problems/Diagnosis (1) CVA (cerebral vascular accident) Problem: Acute Qualifiers: CVA mechanism: unspecified Qualified Code(s): I63.9 - Cerebral infarction, unspecified (2) Hypertensive emergency Problem: Acute
[2019-10-11] MEDS: ACETAMINOPHEN 325 MG TABLET PO PRN (09:09)
[2019-10-11] MEDS: ROSUVASTATIN CALCIUM 20 MG TABLET PO SCH (09:10)
[2019-10-11] MEDS: BISACODYL 5 MG TABLET.DR PO SCH (09:10)
[2019-10-11] MEDS: CALCIUM CARBONATE/VITAMIN D3 1 TAB TABLET PO SCH (09:10)
[2019-10-11] MEDS: amLODIPine BESYLATE 10 MG TABLET PO SCH (09:10)
[2019-10-11] MEDS: TORSEMIDE 20 MG TABLET PO SCH (09:10)
[2019-10-11] MEDS: CLOPIDOGREL BISULFATE 75 MG TABLET PO SCH (09:14)
[2019-10-11] MEDS: METOPROLOL SUCCINATE 100 MG TABLET.SA PO SCH ×2 (09:14→21:08)
[2019-10-11] MEDS: CYANOCOBALAMIN 1,000 MCG TABLET PO SCH (09:15)
[2019-10-11] MEDS: ENALAPRIL MALEATE 20 MG TABLET PO SCH ×2 (09:15→21:08)
[2019-10-11] MEDS ORDERED: ONDANSETRON 4 MG TAB.RAPDIS PO PRN (11:10)
--- NOTE | 2019-10-11 11:14 | PN ---
Subjective - Date and Time Seen Date: 10/11/19 Time: 11:11 Subjective Narrative: Mariah says Hi today, but that is the extent of our conversation. She does not answer any other questions. No nursing concerns. Overall her condition has not changed from yesterday. Objective - Vitals Vitals: Last Vital Signs Temp 36.6 C 10/10/19 20:25 Pulse 94 10/11/19 09:15 Resp 16 10/10/19 20:25 BP 109/55 10/11/19 09:15 Pulse Ox 97 10/10/19 20:25 - Exam Constitutional: Present: Alert. Absent: Oriented x3 Respiratory: Present: lungs clear, normal breath sounds Cardiovascular/Chest: Present: regular rate, rhythm, no edema Skin Exam: Present: normal color, warm/dry, no cyanosis Neurologic: Present: other - She moves head and neck to sound and makes eye contact. She spontaneously moves left extremities but is flaccid on right. Assessment/Plan Plan Narrative: No changes in condition. Planning to admit to hospice at care facility on Sunday. Will discontinue daily weights and give zofran prn nausea. - Problems/Diagnosis (1) CVA (cerebral vascular accident) Problem: Acute Qualifiers: CVA mechanism: unspecified Qualified Code(s): I63.9 - Cerebral infarction, unspecified (2) Hypertensive emergency Problem: Acute
[2019-10-12] MEDS: ACETAMINOPHEN 325 MG TABLET PO PRN (08:26)
[2019-10-12] MEDS: ROSUVASTATIN CALCIUM 20 MG TABLET PO SCH (08:26)
[2019-10-12] MEDS: CYANOCOBALAMIN 1,000 MCG TABLET PO SCH (08:27)
[2019-10-12] MEDS: CALCIUM CARBONATE/VITAMIN D3 1 TAB TABLET PO SCH (08:27)
[2019-10-12] MEDS: CLOPIDOGREL BISULFATE 75 MG TABLET PO SCH (08:27)
[2019-10-12] MEDS: BISACODYL 5 MG TABLET.DR PO SCH (08:27)
[2019-10-12] MEDS: TORSEMIDE 20 MG TABLET PO SCH (08:27)
[2019-10-12] MEDS: METOPROLOL SUCCINATE 100 MG TABLET.SA PO SCH ×2 (08:47→21:04)
[2019-10-12] MEDS: amLODIPine BESYLATE 10 MG TABLET PO SCH (08:47)
[2019-10-12] MEDS: ENALAPRIL MALEATE 20 MG TABLET PO SCH ×2 (08:49→21:05)
--- NOTE | 2019-10-12 22:27 | PN ---
Subjective - Date and Time Seen Date: 10/12/19 Time: 11:15 Subjective Narrative: No changes today. She does not answer questions. Right side is flaccid. No nursing concerns today. She eats some. Objective - Vitals Vitals: Last Vital Signs Temp 36.7 C 10/11/19 20:34 Pulse 92 10/12/19 21:05 Resp 16 10/12/19 21:00 BP 119/62 10/12/19 21:05 Pulse Ox 95 10/11/19 20:34 - Exam Constitutional: Present: Alert, No distress. Absent: Oriented x3 Respiratory: Present: lungs clear, normal breath sounds Cardiovascular/Chest: Present: regular rate, rhythm Abdomen: Present: Normal bowel sounds, soft, nontender Skin Exam: Present: normal color, warm/dry, no cyanosis Neurologic: Present: alert, other - right side flaccid Assessment/Plan Plan Narrative: No changes today. Plan to discharge to nursing facility with hospice tomorrow. - Problems/Diagnosis (1) CVA (cerebral vascular accident) Problem: Acute Qualifiers: CVA mechanism: unspecified Qualified Code(s): I63.9 - Cerebral infarction, unspecified (2) Hypertensive emergency Problem: Acute
[2019-10-13] MEDS: CALCIUM CARBONATE/VITAMIN D3 1 TAB TABLET PO SCH (08:41)
[2019-10-13] MEDS: BISACODYL 5 MG TABLET.DR PO SCH (08:41)
[2019-10-13] MEDS: CYANOCOBALAMIN 1,000 MCG TABLET PO SCH (08:41)
[2019-10-13] MEDS: ROSUVASTATIN CALCIUM 20 MG TABLET PO SCH (09:06)
[2019-10-13] MEDS: METOPROLOL SUCCINATE 100 MG TABLET.SA PO SCH (09:07)
[2019-10-13] MEDS: amLODIPine BESYLATE 10 MG TABLET PO SCH (09:07)
[2019-10-13] MEDS: ENALAPRIL MALEATE 20 MG TABLET PO SCH (09:07)
[2019-10-13] MEDS: TORSEMIDE 20 MG TABLET PO SCH (09:07)
[2019-10-13] MEDS: CLOPIDOGREL BISULFATE 75 MG TABLET PO SCH (09:07)
[2019-10-13] MEDS ORDERED: guaiFENesin 100 MG/5 ML SYRUP PO PRN (11:45)
[2019-10-13] MEDS ORDERED: ACETAMINOPHEN 650 MG SUPP.RECT RC PRN (11:46)
[2019-10-13] MEDS ORDERED: ATROPINE SULFATE 50 DROP BTL SL PRN (11:47)
[2019-10-13] MEDS: MORPHINE SULFATE 10 MG/0.5 ML SYRINGE PO PRN ×3 (15:22→20:15)
--- NOTE | 2019-10-13 22:55 | PN ---
Subjective - Date and Time Seen Date: 10/13/19 Time: 11:30 Subjective Narrative: Increased somnolence today. Did not eat, was sleeping for most of the day. Was unable to work with therapy. Objective - Vitals Vitals: Last Vital Signs Temp 36.7 C 10/11/19 20:34 Pulse 94 10/13/19 08:42 Resp 16 10/12/19 21:00 BP 88/45 L 10/13/19 08:42 Pulse Ox 95 10/11/19 20:34 - Exam Constitutional: Present: Obtunded Respiratory: Present: lungs clear, no respiratory distress Cardiovascular/Chest: Present: regular rate, rhythm, no edema Skin Exam: Present: normal color, warm/dry, no cyanosis Assessment/Plan Plan Narrative: Mariah's condition is worsening. She was more somnolent today, unable to eat or drink. She was given prn medications for dyspnea or pain. Anticipate she will pass in the hospital in the next couple days. Will make her comfortable based on family wishes and no expected improvement. Stopped all medications other than comfort care medications. - Problems/Diagnosis (1) CVA (cerebral vascular accident) Problem: Acute Qualifiers: CVA mechanism: unspecified Qualified Code(s): I63.9 - Cerebral infarction, unspecified (2) Hypertensive emergency Problem: Acute
[2019-10-14] MEDS: MORPHINE SULFATE 10 MG/0.5 ML SYRINGE PO PRN ×5 (07:33→22:50)
[2019-10-15] MEDS: MORPHINE SULFATE 10 MG/0.5 ML SYRINGE PO PRN ×8 (02:07→19:54)
--- NOTE | 2019-10-15 22:59 | PN ---
Subjective - Date and Time Seen Date: 10/14/19 Time: 16:00 Subjective Narrative: No change in condition. Does not awaken. No nursing concerns. Objective - Vitals Vitals: Last Vital Signs Temp 36.7 C 10/11/19 20:34 Pulse 94 10/13/19 08:42 Resp 16 10/12/19 21:00 BP 88/45 L 10/13/19 08:42 Pulse Ox 95 10/11/19 20:34 - Exam Constitutional: Present: Other - unresponsive Respiratory: Present: lungs clear, no respiratory distress Cardiovascular/Chest: Present: regular rate, rhythm Skin Exam: Present: normal color, warm/dry, no cyanosis Neurologic: Present: other - unresponsive. Absent: alert Assessment/Plan Plan Narrative: Mariah remains in comfort cares, no changes made today. She appears comfortable. She is no longer responsive. Life expectancy days. - Problems/Diagnosis (1) CVA (cerebral vascular accident) Problem: Acute Qualifiers: CVA mechanism: unspecified Qualified Code(s): I63.9 - Cerebral infarction, unspecified (2) Hypertensive emergency Problem: Acute
--- NOTE | 2019-10-15 23:10 | DS ---
Discharge Summary - Provider Admitting Clinician: Ramón Peguero - Date and Time Date of : 10/15/19 - Diagnosis/Cause of (1) CVA (cerebral vascular accident) Problems: Acute (2) Hypertensive emergency Problems: Acute (3) Hypernatremia Problems: Acute (4) THIERNO (acute kidney injury) Problems: Acute - Summary Details (narrative): Mariah was admitted due to acute stroke. She was found outside of the timeframe for acute stroke treatment. She was admitted for medical management with statins, blood pressure control, antiplatelet therapy, and therapies to work on strength. Her blood pressure was gradually lowered from critical levels to norm al over days so as to not worsen her stroke.She was significantly weak on the right side and this continued to progress until she was completely flaccid on the right. Her mental status and motor strength continued to worsen until she was not taking in needed orals and weakness progressed. She devoloped worsening renal failure and hypernatremia due to poor oral intake. Her next of kin her nephew visited her in the hospital but she was unable to recognize him. He did not wish for her to live in this condition and she was made comfort cares. Her condition continued to worsen and she became completely unresponsive. She ultimately on 10/15/19. Procedures Performed: none - Additional Data Practitioner(Attending/PCP) notified: Yes Attending physician: Ramón Peguero Was code activated: No Autopsy requested: No Exercise Physiology Professor notified: No
[2019-10-15 23:25] VITALS: BP 0/0
== END 2019-10-15 21:41 | disposition expired | DRG 65 ==
LOC: ER 22:11 → MS 23:22
PROVIDERS: ADMIT Family Medicine; ATTEND Family Medicine
DX: S46.911A Strain of unspecified muscle, fascia and tendon at shoulder and upper arm level, right arm, initial encounter; I63.9 Cerebral infarction, unspecified; R29.718 NIHSS score 18; E87.0 Hyperosmolality and hypernatremia; N17.9 Acute kidney failure, unspecified; W01.0XXA Fall on same level from slipping, tripping and stumbling without subsequent striking against object, initial encounter; I16.1 Hypertensive emergency; Z85.118 Personal history of other malignant neoplasm of bronchus and lung; Z87.891 Personal history of nicotine dependence; R40.2413 Glasgow coma scale score 13-15, at hospital admission; J44.9 Chronic obstructive pulmonary disease, unspecified; G81.91 Hemiplegia, unspecified affecting right dominant side
CPT/HCPCS: 36415; 70450; 71010; 71045; 73020; 73030; 73060; 73502; 73610; 80053; 81001; 82550; 84484; 85025; 85610; 85652; 85730; 87086; 92507; 92523; 93005; 96374; 97110; 97116; 97140; 97162; 97165; 97530; 97535; 99285; J0131